=== PATIENT | male | born 1995 ===

== ENCOUNTER 2021-03-29 20:25 | Emergency (ER) | payer SELFPAY | END 2021-03-29 21:32 | disposition home or self-care (01) | LOC: ERS 20:25 | DX: K62.89 Other specified diseases of anus and rectum (principal) | CPT/HCPCS: 99282 ==

== ENCOUNTER 2021-05-07 23:24 | Emergency (ER) | payer SELFPAY | END 2021-05-08 02:39 | disposition home or self-care (01) | LOC: ERS 23:24 | DX: K59.00 Constipation, unspecified (principal) | CPT/HCPCS: 99283 ==

== ENCOUNTER 2022-07-22 19:52 | Emergency (ER) | payer SELFPAY ==
[~2022-07-22 19:52] MED LIST: Iopamidol-370 76% 500 ML 1 ML ONE
[2022-07-22] MEDS ORDERED: Ketorolac Tromethamine 30 MG/ML VIAL ONE (20:35)
[2022-07-22] MEDS ORDERED: Dexamethasone 4 MG TAB ONE ×2 (20:35→20:36)
[2022-07-22] MEDS ORDERED: Acetaminophen 500 MG TAB ONE (20:55)
[2022-07-22 21:09] LABS: #Lymphocytes 1.2 thou/uL (1.20-3.40); #Monocytes 0.8 thou/uL (0.11-0.59); #Neutrophils 4.4 thou/uL (1.40-6.50); %Eosinophils 0.3 % (0.0-10.0); %Lymphocytes 18.2 % (21.0-51.0); %Monocytes 12.1 % (0.0-10.0); %Neutrophils 69.4 % (42.0-75.0); Mean Corpuscular HGB CONC 34.6 g/dL (32.0-36.0); Mean Corpuscular Hemoglobin 29.2 pg (27.0-31.0); Mean Corpuscular Volume 84.5 fl (78.0-98.0); Mean Platelet Volume 7.1 fL (7.4-10.4); Platelet Count 161 10x3/uL (130-400); RBC Distribution Width 11.5 % (11.5-14.5); Red Blood Cell (RBC) Count 5.14 mill/uL (4.70-6.10); White Blood Cell (WBC) Count 6.4 10x3/uL (4.8-10.8)
[2022-07-22 21:31] LABS: ALT (SGPT) 24 U/L (8-55); AST (SGOT) 16 U/L (5-34); Albumin 4.5 g/dL (3.5-5.0); Alkaline Phosphatase 65 U/L (40-110); Anion Gap 15 mmol/L (10-20); BUN (Urea Nitrogen) 9 mg/dL (8.9-20.6); Calc. Creatinine Clearance 0 mL/min (70-130); Calcium 9.5 mg/dL (7.8-10.44); Carbon Dioxide 23 mmol/L (22-29); Chloride 101 mmol/L (98-107); Estimated GFR 122; Globulin 2.7 g/dL (2.4-3.5); Glucose 96 mg/dL (70-105); Protein, Total 7.2 g/dL (6.0-8.3); Sodium 135 mmol/L (136-145)
== END 2022-07-22 22:16 | disposition home or self-care (01) ==
LOC: ERS 19:52
DX: J03.90 Acute tonsillitis, unspecified (principal)
CPT/HCPCS: 36415; 70491; 80053; 85025; 96374; J1885; J8540; Q9967